=== PATIENT | female | born 2000 | race Caucasian/White ===

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

== ENCOUNTER 2020-08-10 01:44 | Emergency (ER) | payer OTHER ==
[2020-08-10 02:15] VITALS: BP 116/53; PULSE 94; TEMP 98.3; BMI 41.5
--- OUTSIDE RECORDS SUMMARY | 2020-08-10 02:16 | XMS ---
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 12/13/2019 eCW2 (Planne d 12:00:00 AM [facility] - EST [place] [employer]) US transvaginal, 12/10/2019 eCW2 (Plann ed uterus 12:00:00 AM [facility] - EST [place] [employer]) Test 12/10/2019 eCW2 (Planned 12:00:00 AM [facility] - EST [place] [employer]) HEMOGLOBIN 12/10/2019 eCW2 (Planned 12:00:00 AM [facility] - EST [place] [employer]) BETA HCG QUANTI 12/10/2019 eCW2 (Planne d 12:00:00 AM [facility] - EST [place] [employer]) CHLAMYDIA, RENE 12/10/2019 eCW2 (Planned 12:00:00 AM [facility] - EST [place] [employer]) GONORRHEA, RENE 12/10/2019 eCW2 (Planned 12:00:00 AM [facility] - EST [place] [employer]) TRICHOMONAS, RENE 12/10/2019 eCW2 (Plann ed 12:00:00 AM [facility] - EST [place] [employer] [employer]) HIV Rapid Test INSTI 12/10/2019 eCW2 (P lanned 12:00:00 AM [facility] - EST [place] [employer]) GONORRHEA, RENE 10/02/2018 eCW2 (Planned 12:00:00 AM [facility] - EST [place] [employer]) GLUCOSE SERUM 10/02/2018 eCW2 (Planned 12:00:00 AM [facility] - EST [place] [employer]) BLOOD TYPING, ABO 10/02/2018 eCW2 (Plan lizbet ( only) 12:00:00 AM [facility] - EST [place] [employer] [employer]) BLOOD TYPING RH FACTOR 10/02/2018 eCW2 (Planned 12:00:00 AM [facility] - EST [place] [employer]) CHLAMYDIA, RENE 10/02/2018 eCW2 (Planned 12:00:00 AM [facility] - EST [place] [employer]) URINE CULTURE/COLONY 10/02/2018 eCW2 (P lanned COUNT 12:00:00 AM [facility] - EST [place] [employer] [employer]) Urinalysis Dip 10/02/2018 eCW2 (Planned 12:00:00 AM [facility] - EST [place] [employer]) RUBELLA ANTIBODY 10/02/2018 eCW2 (Plann ed 12:00:00 AM [facility] - EST [place] [employer]) CYSTIC FIBROSIS SCREEN 10/02/2018 eCW2 (Planned 12:00:00 AM [facility] - EST [place] [employer] [employer]) HIV Rapid Test INSTI 10/02/2018 eCW2 (P lanned 12:00:00 AM [facility] - EST [place] [employer]) TB TEST, CELL IMMUN 10/02/2018 eCW2 (Pl anned MEASURE 12:00:00 AM [facility] - EST [place] [employer]) HEMOGLOBIN 10/02/2018 eCW2 (Planned CHROMOTOGRAPHY 12:00:00 AM [facility] - EST [place] [employer]) SYPHILIS TEST 10/02/2018 eCW2 (Planned 12:00:00 AM [facility] - EST [place] [employer]) URINALYSIS, COMPLETE 10/02/2018 eCW2 (P lanned 12:00:00 AM [facility] - EST [place] [employer]) RBC ANTIBODY SCREEN 10/02/2018 eCW2 (Pl anned () 12:00:00 AM [facility] - EST [place] [employer] [employer]) VARICELLA ZOSTER 10/02/2018 eCW2 (Plann ed ANTIBODY 12:00:00 AM [facility] - EST [place] [employer] [employer]) CBC W/DIFFERENTIAL 10/02/2018 eCW2 (Gustavo nned 12:00:00 AM [facility] - EST [place] [employer]) HEP B SURFACE ANTIGEN 10/02/2018 eCW2 ( Planned HBsAg 12:00:00 AM [facility] - EST [place] [employer]) DRUG SCREEN, SINGLE 10/02/2018 eCW2 (Pl anned 12:00:00 AM [facility] - EST [place] [employer] [employer]) ASSAY OF LEAD 10/02/2018 eCW2 (Planned 12:00:00 AM [facility] - EST [place] [employer]) URINE TEST 03/16/2016 [facility] 12:00:00 AM ([facility]) 03/16/2016 04:57:32 PM EDT URINALYSIS DIP STICK 03/16/2016 [facility] 12:00:00 AM ([facility] EDT [facility]) 03/16/2016 04:57:32 PM EDT Urine Culture 09/23/2015 [facility] 12:00:00 AM ([facility] EST [facility]) 09/25/2015 12:34:[address]/GC RRNA,APTIMA,URINE 09/23/2015 [facility] 12:00:00 AM ([facility] EST [facility]) 09/25/2015 08:26:49 AM EST URINE 09/23/2015 [facility] 12:00:00 AM ([facility] EST [facility]) 09/23/2015 11:47:19 AM EST URINALYSIS DIP STICK 09/23/2015 [facility] 12:00:00 AM ([facility]) 09/23/2015 11:47:19 AM EST ALERE 4TH GEN RAPID HIV 09/23/2015 Cent [facility]icity 12:00:00 AM [facility] 09/23/2015 11:47:17 AM EST IMMUNIZATION ADMIN 09/09/2015 [facility] (PEDS) 1 VACCINE 12:00:00 AM ([facility] EST [facility]) 09/10/2015 12:22:22 PM EST Fluzone Quadrivalent 09/09/2015 [facility] Intramuscular 12:00:00 AM ([facility] Suspension 0.5 [facility] 09/10/2015 12:22:21 PM EST No Known procedures No Known procedures e CW2 ([facility] [place] [employer] [employer]) No Known procedures No Known procedures e CW2 ([facility] [place] [employer] [employer]) No Known procedures No Known procedures e CW2 ([facility] [place] [employer] [employer]) No Known procedures No Known procedures e CW2 ([facility] [place] [employer] [employer]) No Known procedures No Known procedures e CW2 ([facility] [place] [employer] [employer]) No Known procedures No Known procedures e CW2 ([facility] [place] [employer]) No Known procedures No Known procedures e CW2 ([facility] [place] [employer]) Results ID Date Data Source [id number] 05/11/2019 11:29:26 AM EDT [facility] [id number] Corporation Name Value Range Interpretation Description Data Source(s ) Supporting Code Document(s ) Antibody NEG <td> [place] Screen 05/08/2019 [facility] 22:30</td><td> Care Antibody Corporation Screen </td><td> NEG
</td> Specimen 05/11/20 <td> [facility] expiration 19 23:59 05/08/2019 [facility] date of Blood 22:30</td><td> Care Specimen Corporation Expiration Date </td><td> 05/11/2019 23:59
</td> ABO-Rh Type O POS <td> [place] 05/08/2019 [facility] 22:30</td><td> Care ABO-Rh Type Corporation </td><td> O POS
</td> ID Date Data Source [id number] 05/11/2019 11:29:26 AM EDT [facility] [id number] Corporation Name Value Range Interpretation Description Data Sup porting Code Source(s) Document(s ) Erythrocytes 4.04 m/mm3 3.60-5 <td> 05/10/2019 [facility] r [#/volume] in .10 05:20</td><td> [facility] Blood m/mm3 RBC </td><td> [facility] Care [facility] 4.04
(3.60-5.10) m/mm3 </td> Leukocytes 12.1 k/mm3 4.5-11 <td> 05/10/2019 [place] [#/volume] in .5 05:20</td><td> [facility] Blood by k/mm3 [facility]BC [facility] Automated count </td><td><sal Corporat ion raph styleCode="Bold "> 12.1 H </paragraph>
(4.5-11.5) k/mm3 </td> Hemoglobin 10.6 g/dL 11.5-1 <td> 05/10/2019 [place] [Mass/volume] 4.5 05:20</td><td> [facility] in Blood g/dL HGB Health Care </td><td><sal Corporation raph styleCode="Bold "> 10.6 L </paragraph>
(11.5-14.5) g/dL </td> Erythrocyte 32.3 % 32.0-3 <td> 05/10/2019 [place] mean 6.0 % 05:20</td><td> County corpuscular MCHC </td><td> Health Care hemoglobin Corporation concentration 32.3 [Mass/volume] in Blood from
Fetus by (32.0-36.0) % Automated count </td> Platelet mean 10.1 fL 9.8-12 <td> 05/10/2019 [facility] r volume [Entitic .8 fL 05:20</td><td> County volume] in MPV </td><td> Health Care Blood by [employer] Automated count 10.1
(9.8-12.8) fL </td> Erythrocyte 81.2 fL 80.0-9 <td> 05/10/2019 [place] mean 6.0 fL 05:20</td><td> County corpuscular MCV </td><td> Health Care volume [[employer] volume] by 81.2 Automated count
(80.0-96.0) fL </td> Erythrocyte 13.1 % 11.5-1 <td> 05/10/2019 [place] distribution 4.5 % 05:20</td><td> County width [Entitic RDW </td><td> Health Car e volume] by [employer] Automated count 13.1
(11.5-14.5) % </td> Erythrocyte 26.2 pg 27.0-3 <td> 05/10/2019 [place] mean 1.5 pg 05:20</td><td> County corpuscular MCH Health Care hemoglobin </td><td><sal Corporation [Entitic mass] raph by Automated styleCode="Bold count "> 26.2 L </paragraph>
(27.0-31.5) pg </td> Hematocrit 32.8 % 36.0-4 <td> 05/10/2019 [place] [Volume 7.0 % 05:20</td><td> County Fraction] of HCT Health Care Blood by </td><td><[employer] Automated count raph styleCode="Bold "> 32.8 L </paragraph>
(36.0-47.0) % </td> Basophils+Eosin 1.4 % 0.0-5. <td> 05/10/2019 [facility] ophils+Monocyte 0 % 05:20</td><td> County s [#/volume] in Eosinophils Health Care Blood by </td><td> [employer] Automated count 1.4
(0.0-5.0) % </td> Platelets 218 k/mm3 160-41 <td> 05/10/2019 [place] [#/volume] in 0 05:20</td><td> [facility] Blood by k/mm3 Platelet Count Health Care Automated count </td><td> [employer] 218
(160-410) k/mm3 </td> Monocytes/Leuko 6.9 % 0.0-11 <td> 05/10/2019 [facility] cytes [Pure .0 % 05:20</td><td> County number Monocytes. Health Care fraction] in </td><td> [employer] Blood by Automated count 6.9
(0.0-11.0) % </td> Immature 0.7 % 0.0-0. <td> 05/10/2019 [place] granulocytes/10 5 % 05:20</td><td> County 0 leukocytes in IG% Health Care Blood by </td><td><[employer] Automated count raph styleCode="Bold "> 0.7 H </paragraph>
(0.0-0.5) %
The IG fraction represents metamyelocytes, myelocytes and/or
promyelocytes and is only reported as part of the automated
differential when found at a percentage of less than 6.
If higher than 6%, a manual differential will be performed.

(0.0-0.5) % </td> Basophils 0.2 % 0.0-2. <td> 05/10/2019 [place] [#/volume] in 0 % 05:20</td><td> [facility] Blood by Basophils Health Care Automated count </td><td> [employer] 0.2
(0.0-2.0) % </td> Lymphocytes 19.9 % 18.0-5 <td> 05/10/2019 [place] [#/volume] in 3.0 % 05:20</td><td> [facility] Blood by Lymphocytes Health Care Automated count </td><td> [employer] 19.9
(18.0-53.0) % </td> Poikilocytosis Slight <td> 05/08/2019 [facility] er [Presence] in 22:30</td><td> [facility] Blood by Light Poikilocytosis Health Car e microscopy </td><td> [employer] Slight
</td> Glucose 59 mg/dL 70-105 <td> 05/10/2019 [place] [Mass/volume] mg/dL 05:20</td><td> County in Blood Glucose-Serum Health Care </td><td><sal Corporation raph styleCode="Bold "> 59 L </paragraph>
(70-105) mg/dL </td> Potassium 3.8 mEq/L 3.5-5. <td> 05/10/2019 [facility] [Moles/volume] 1 05:20</td><td> County in Serum or mEq/L Potassium-Serum Health Care Plasma </td><td> [employer] [employer] 3.8
(3.5-5.1) mEq/L </td> Anisocytosis Slight <td> 05/08/2019 [place] [Presence] in 22:30</td><td> [facility] Blood by Light Anisocytosis Health Care microscopy </td><td> [employer] Slight
</td> Neutrophils [#] 70.9 % 36.0-7 <td> 05/10/2019 [facility] in Body fluid 3.0 % 05:20</td><td> [facility] by Manual count Neutrophils Health Care </td><td> [facility] [employer] 70.9
(36.0-73.0) % </td> Sodium 138 mEq/L 135-14 <td> 05/10/2019 [facility] [Moles/volume] 5 05:20</td><td> County in Serum or mEq/L Sodium-Serum Health Care Plasma </td><td> Corporation 138
(135-145) mEq/L </td> Carbon dioxide, 21 mEq/L 22-30 <td> 05/10/2019 [facility] total mEq/L 05:20</td><td> County [Moles/volume] CO2 Health Care in Serum or </td><td><[employer] Plasma raph styleCode="Bold "> 21 L </paragraph>
(22-30) mEq/L </td> Urea nitrogen 5 mg/dL 6-22 <td> 05/10/2019 [facility] r [Mass/volume] mg/dL 05:20</td><td> County in Blood BUN Health Care </td><td><[employer] raph styleCode="Bold "> 5 L </paragraph>
(6-22) mg/dL </td> Creatinine 0.50 mg/dL 0.57-1 <td> 05/10/2019 [facility] [Moles/volume] .11 05:20</td><td> County in Serum or mg/dL Creatinine. Health Care Plasma </td><td><[employer] raph styleCode="Bold "> 0.50 L </paragraph>
(0.57-1.11) mg/dL </td> Chloride 108 mEq/L 98-107 <td> 05/10/2019 [facility] [Moles/volume] mEq/L 05:20</td><td> County in Serum or Chloride Health Care Plasma </td><td><[employer] raph styleCode="Bold "> 108 H </paragraph>
(98-107) mEq/L </td> Alanine 14 U/L 6-55 <td> 05/10/2019 [facility] aminotransferas U/L 05:20</td><td> County e [Enzymatic ALT (SGPT) Health Care activity/volume </td><td> Corporation ] in Serum or Plasma 14
(6-55) U/L </td> Aspartate 20 U/L 4-35 <td> 05/10/2019 [facility] aminotransferas U/L 05:20</td><td> County e [Enzymatic AST (SGOT) Health Care activity/volume </td><td> [employer] ] in Serum or Plasma 20
(4-35) U/L </td> Anion gap in 9 mEq/L 7-13 <td> 05/10/2019 [facility] Serum or Plasma mEq/L 05:20</td><td> [facility] Anion Gap Health Care </td><td> [employer] 9
(7-13) mEq/L </td> Globulin 2.8 gm/dL 2.9-4. <td> 05/10/2019 [facility] [Mass/volume] 0 05:20</td><td> County in Serum gm/dL Globulin Health Care </td><td><sal [employer] raph styleCode="Bold "> 2.8 L </paragraph>
(2.9-4.0) gm/dL </td> Proteins - 5.5 g/dL 5.6-7. <td> 05/10/2019 [facility] Total 5 g/dL 05:20</td><td> [facility] Proteins - Health Care [employer] </td><td><sal raph styleCode="Bold "> 5.5 L </paragraph>
(5.6-7.5) g/dL </td> Bilirubin.total 0.5 mg/dL 0.2-1. <td> 05/10/2019 [facility] [Mass/volume] 3 05:20</td><td> [facility] in Blood mg/dL Bilirubin - Health Care Total [facility] [employer] </td><td> 0.5
(0.2-1.3) mg/dL </td> Calcium 8.9 mg/dL 8.6-10 <td> 05/10/2019 [facility] [Mass/volume] .2 05:20</td><td> [facility] in Blood mg/dL Calcium Health Care </td><td> [employer] [employer] 8.9
(8.6-10.2) mg/dL </td> Hemolysis index No <td> 05/10/2019 [facility] of Serum or Hemolysis 05:20</td><td> County Plasma Hemolysis Index Health Care </td><td> Corporation No Hemolysis
</td> Albumin 2.7 g/dL 3.4-4. <td> 05/10/2019 [facility] [Mass/volume] 8 g/dL 05:20</td><td> County in Serum or Albumin Health Care Plasma </td><td><sal Corporation raph styleCode="Bold "> 2.7 L </paragraph>
(3.4-4.8) g/dL </td> Lipemic index No Lipemia <td> 05/10/2019 [facility] er of Serum or 05:20</td><td> County Plasma Lipemia Index Health Care </td><td> [employer] No Lipemia
</td> Protein 1+ (30 <td> 05/08/2019 [facility] [Presence] in MG/DL) 17:00</td><td> [facility] Urine by Protein Health Care Automated test [employer] strip </td><td> 1+ (30 MG/DL)
(NEGATIVE) </td> Appearance of Cloudy <td> 05/08/2019 [facility] r Urine 17:00</td><td> County Appearance Health Care </td><td> [employer] [employer] Cloudy
(CLEAR) </td> Specific 1.031 {} 1.000- <td> 05/08/2019 [facility] gravity of 1.035 17:00</td><td> [facility] Urine by Test Specific Health Care strip [place] [facility] [employer] </td><td> 1.031
(1.000-1.035) </td> Glucose Negative <td> 05/08/2019 [place] [Presence] in 17:00</td><td> [facility] Urine by Test Glucose_ Health Care strip </td><td> Corporation Negative
(NEGATIVE) </td> Icteric index Not <td> 05/10/2019 [facility] r of Serum or Icteric 05:20</td><td> [facility] Plasma Icteric Index Health Care </td><td> Corporation Not Icteric
</td> Nitrite Negative <td> 05/08/2019 [place] [Presence] in 17:00</td><td> [facility] Urine by Test Nitrites Health Care strip </td><td> Corporation Negative
(NEGATIVE) </td> Bacteria RARE <td> 05/08/2019 [facility] [#/area] in 17:00</td><td> [facility] Urine sediment Bacteria Health Care by Microscopy </td><td> [employer] high power field RARE
(NONE SEEN) /HPF </td> Urobilinogen 2.0 mg/dL 0.0-2. <td> 05/08/2019 [place] [Presence] in 0 17:00</td><td> [facility] Urine by mg/dL Urobilinogen [facility] Care Automated test </td><td> [employer] strip 2.0
(0.0-2.0) mg/dL </td> Leukocytes 10 /HPF 0-5 <td> 05/08/2019 [facility] [Presence] in /HPF 17:00</td><td> [facility] Urine by WBC </td><td> Health Care Automated [employer] 10
(0-5) /HPF </td> Leukocyte 1+ <td> 05/08/2019 [facility] esterase 17:00</td><td> [facility] [Presence] in Leukocytes Health Care Urine by Test Esterase [employer] strip </td><td><sal raph styleCode="Bold "> 1+ * AB </paragraph>
(NEGATIVE) </td> Erythrocytes 1 /HPF 0-2 <td> 05/08/2019 [facility] [#/area] in /HPF 17:00</td><td> [facility] Urine sediment RBC </td><td> Health Car e by Automated [employer] count 1
(0-2) /HPF </td> Epithelial MANY <td> 05/08/2019 [facility] cells [#/area] FEW 17:00</td><td> [facility] in Urine Epithelial Health Care sediment by [employer] Automated count </td><td> MANY
/LPF
FEW

/LPF </td> Mucous RARE <td> 05/08/2019 [facility] < FEW 17:00</td><td> County Mucous Health Care </td><td> Corporation RARE
/LPF
< FEW

/LPF </td> Epithelial MODERATE <td> 05/08/2019 [facility] cells [#/area] Ca Oxalate 17:00</td><td> [facility] in Urine Crystals.. Calcium Oxalate Health Care sediment by May be [employer] Automated count present in </td><td> normal, MODERATE acid or
alkaline Ca Oxalate urine Crystals..May be present in normal, acid or alkaline urine

(SEE BELOW) /HPF </td> ID Date Data Source [id number] 05/08/2019 06:34:04 PM EDT [facility] [id number] [employer] Name Value Range Interpretation Description Data Source(s ) Supporting Code Document(s ) No Results Normal (applies < [facility] information to non-numeric align="left">< [facility] ealt exists for results) content Care this episode. styleCode="Consult A Doctor d"> No Results information exists for this episode.
< /content></th> ID Date Data Source [id number] 05/07/2019 08:18:04 PM EDT [facility] [id number] [facility] [employer] Name Value Range Interpretation Description Data Source(s ) Supporting Code Document(s ) No Results Normal (applies < [facility] information to non-numeric align="left">< [facility]) content Care this episode. styleCode="Consult A Doctor d"> No Results information exists for this episode.
< /content></th> ID Date Data Source Urinalysis 10/03/2018 07:15:00 PM [facility] Name Value Range Interpretation Description Data Sup porting Code Source(s) Document(s ) Glucose NEGATIVE <content [facility] [Mass/volume] styleCode="Robby Maris in Urine by d">Urine Medical Test strip Glucose Center </content>NEGA TIVE MG/DL<content styleCode="Cathleen lics"> (NEGATIVE MG/DL)</conten t> Ketones NEGATIVE <content [facility] [Mass/volume] styleCode="Robby Maris in Urine by d">Urine Medical Test strip Ketone Center </content>TRAC E MG/DL<content styleCode="Cathleen lics"> (NEGATIVE MG/DL)</conten t> Color of Urine YELLOW <content Saint styleCode="Robby Maris d">Color, Medical Urine Center </content>YELL OW <content styleCode="Cathleen lics"> (YELLOW )</content> UNK CLEAR <content Saint styleCode="Robby Cuellars d">Urine Medical Clarity Center </content>HAZY <content styleCode="Cathleen lics"> (CLEAR )</content> UNK NEGATIVE <content Saint styleCode="Robby Maris d">Urine Medical Bilirubin Center </content>NEGA TIVE <content styleCode="Cathleen lics"> (NEGATIVE )</content> Protein NEGATIVE <content Saint [Mass/volume] styleCode="Robby Cuellars in Urine by d">Urine Medical Test strip Protein Center </content>NEGA TIVE MG/DL<content styleCode="Cathleen lics"> (NEGATIVE MG/DL)</conten t> Specific 1.015-1.02 <content Saint gravity of 5 styleCode="Robby Cuellars Urine by Test d">Urine Medical strip Specific Center [place] </content>1.02 5 NM<content styleCode="Cathleen lics"> (1.015-1.025 NM)</content> pH of Urine by 4.5-8.0 <content Saint Test strip styleCode="Robby Maris d">Urine pH Medical </content>6.0 Center NM<content styleCode="Cathleen lics"> (4.5-8.0 NM)</content> Hemoglobin NEGATIVE <content Saint [Presence] in styleCode="Robby Cuellars Urine by Test d">Urine Blood Medical strip </content>NEGA Center TIVE <content styleCode="Cathleen lics"> (NEGATIVE )</content> Leukocyte NEGATIVE <content Saint esterase styleCode="oRbby Cuellars [Presence] in d">Urine Medical Urine by Test Leukocyte Center strip </content>TRAC E <content styleCode="Cathleen lics"> (NEGATIVE )</content> Urobilinogen 0.2-1.0 <content Saint [Units/volume] styleCode="Robby Cuellars in Urine by d">Urine Medical Test strip Urobilinogen Center </content>1.0 MG/DL<content styleCode="Cathleen lics"> (0.2-1.0 MG/DL)</conten t> UNK 0-3 <content Saint styleCode="Robby Maris d">Urine White Medical Blood Cell Center </content>3-5 HPF<content styleCode="Cathleen lics"> (0-3 HPF)</content> Nitrite NEGATIVE <content Saint [Presence] in styleCode="Robby Cuellars Urine by Test d">Urine Medical strip Nitrite Center </content>NEGA TIVE <content styleCode="Cathleen lics"> (NEGATIVE )</content> UNK <content Saint styleCode="Robby Maris d">Epithelial Medical Cell Center </content>0-2 LPF (Reference Range: not available)<br/ > ID Date Data Source HematologyRou 10/03/2018 07:05:00 PM EST [facility] Name Value Range Interpretation Description Data Sup porting Code Source(s) Document(s ) Leukocytes 5.0-13.0 <content Saint [#/volume] in styleCode="Bold Maris Blood by ">White Blood Medical Automated count Cell Count Center </content>8.95 KCUMM<content styleCode="Ital ics"> (5.0-13.0 KCUMM)</content > Erythrocytes 3.9-5.3 <content Saint [#/volume] in styleCode="Bold Maris Blood by ">Red Blood Medical Automated count Cell Count Center </content>4.56 MCUMM<content styleCode="Ital ics"> (3.9-5.3 MCUMM)</content > Hematocrit 36.0-46. Below low normal <content Saint [Volume 0 styleCode="Bold Maris Fraction] of ">Hematocrit Medical Blood by </content>35.5 Center Automated count % L<content styleCode="Ital ics"> (36.0-46.0 %)</content> Erythrocyte mean 75.0-95. <content Saint corpuscular 0 styleCode="Bold Maris volume [Entitic ">Mean Medical volume] by Corpuscular Center Automated count Volume </content>77.9 FL<content styleCode="Ital ics"> (75.0-95.0 FL)</content> Erythrocyte mean 24.0-32. <content Saint corpuscular 0 styleCode="Bold Maris hemoglobin ">Mean Medical [Entitic mass] Corposcular Center by Automated Hemoglobin count </content>26.5 PG<content styleCode="Ital ics"> (24.0-32.0 PG)</content> Hemoglobin 11.5-16. <content Saint [Mass/volume] in 0 styleCode="Bold Maris Blood ">Hemoglobin Medical </content>12.1 Center G/DL<content styleCode="Ital ics"> (11.5-16.0 G/DL)</content> Erythrocyte mean 31.0-37. <content Saint corpuscular 0 styleCode="Bold Maris hemoglobin ">Mean Corpus. Medical concentration Hgb Center [Mass/volume] by Concentration Automated count (MCHC) </content>34.1 G/DL<content styleCode="Ital ics"> (31.0-37.0 G/DL)</content> Erythrocyte 12.7-14. Below low normal <content Saint distribution 5 styleCode="Bold Maris width [Ratio] by ">Red Cell Medical Automated count Distribution Center Width </content>12.6 % L<content styleCode="Ital ics"> (12.7-14.5 %)</content> Platelets 140-400 <content Saint [#/volume] in styleCode="Bold Maris Blood by ">Platelet Medical Automated count Count Center </content>284 KCUMM<content styleCode="Ital ics"> (140-400 KCUMM)</content > Neutrophils 40.0-74. <content Saint [#/volume] in 0 styleCode="Bold Maris Blood by ">Neutrophil Medical Automated count </content>64.9 Center %<content styleCode="Ital ics"> (40.0-74.0 %)</content> Platelet mean 8.0-11.0 <content Saint volume [Entitic styleCode="Bold Maris volume] in Blood ">Mean Platelet Medical by Automated Volume Center count </content>9.6 FL<content styleCode="Ital ics"> (8.0-11.0 FL)</content> Monocytes 2.0-7.0 <content Saint [#/volume] in styleCode="Bold Maris Blood by ">Monocyte Medical Automated count </content>6.6 Center %<content styleCode="Ital ics"> (2.0-7.0 %)</content> UNK 1.5-8.0 <content Saint styleCode="Bold Maris ">Neutrophil Medical Count Center </content>5.80 KCUMM<content styleCode="Ital ics"> (1.5-8.0 KCUMM)</content > Lymphocytes 14.0-45. <content Saint [#/volume] in 0 styleCode="Bold Maris Blood by ">Lymphocyte Medical Automated count </content>26.5 Center %<content styleCode="Ital ics"> (14.0-45.0 %)</content> UNK 2.5-3.5 Below low normal <content Saint styleCode="Bold Maris ">Lymphocyte Medical Count Center </content>2.37 KCUMM L<content styleCode="Ital ics"> (2.5-3.5 KCUMM)</content > Eosinophils 0-5.0 <content Saint [#/volume] in styleCode="Bold Maris Blood by ">Eosinophil Medical Automated count </content>1.3 Center %<content styleCode="Ital ics"> (0-5.0 %)</content> UNK 0.4-0.8 <content Saint styleCode="Bold Maris ">Monocyte Medical Count Center </content>0.59 KCUMM<content styleCode="Ital ics"> (0.4-0.8 KCUMM)</content > UNK 0.2-0.4 Below low normal <content Saint styleCode="Bold Maris ">Eosinophil Medical Count Center </content>0.12 KCUMM L<content styleCode="Ital ics"> (0.2-0.4 KCUMM)</content > Basophils 0.0-2.0 <content Saint [#/volume] in styleCode="Bold Maris Blood by ">Basophil Medical Automated count </content>0.3 Center %<content styleCode="Ital ics"> (0.0-2.0 %)</content> UNK 0.0-0.2 <content Saint styleCode="Bold Maris ">Basophil Medical Count Center </content>0.03 KCUMM<content styleCode="Ital ics"> (0.0-0.2 KCUMM)</content > UNK 0-0.1 <content Saint styleCode="Bold Maris ">Immature Medical Granulocyte Center Count </content>0.04 KCUMM<content styleCode="Ital ics"> (0-0.1 KCUMM)</content > UNK 0.0 <content Saint styleCode="Bold Maris ">Nucleated Red Medical Blood Cell Center Count </content>0.00 KCUMM<content styleCode="Ital ics"> (0.0 KCUMM)</content > UNK 0 <content Saint styleCode="Bold Maris ">Nucleated Red Medical Blood Cell Center </content>0.0 /100<content styleCode="Ital ics"> (0 /100)</content> UNK < 1 <content Saint styleCode="Bold Maris ">Immature Medical Granulocyte Center Ratio </content>0.4 %<content styleCode="Ital ics"> (< 1 %)</content> ID Date [facility]/03/[facility] 07:05:00 PM EST [facility] Name Value Range Interpretation Code Description Data Criselda rce(s) Supporting Document(s ) UNK NEGATIVE <content [facility] styleCode="Bold" Medical Cente r >Antibody Screen </content>NEGATI VE <content styleCode="Itali cs"> (NEGATIVE )</content> UNK <content [facility] styleCode="Bold" Medical Cente r >RH Type </content>TNP (Reference Range: not available)
UNK <content [facility] styleCode="Bold" Medical Cente r >RH Type </content>POSITI VE (Reference Range: not available)
UNK <content [facility] styleCode="Bold" Medical Cente r >Blood Type </content>GROUP O (Reference Range: not available)
ID Date Data Source Blood Typing RH D 10/02/2018 12:00:00 AM EST eCW2 ([facility] Name Value Range Interpretation Code Description Data Criselda rce(s) Supporting Document(s ) Rh [Type] Positive Rh Factor eCW2 ([facility]) ID Date Data Source [id number] 03/16/2016 04:21:51 PM EDT Centric ity ([facility] [id number] [facility]) Name Value Range Interpretation Description Data Sup porting Code Source(s) Document(s ) Choriogonadotropin Negative HCG PREG UR Centricit y ( test) ([facility] [Presence] in Urine [facility]) specific gravity, 1.030 SPEC GR URIN Centricit y urine ([facility]) glucose, urine, Negative GLUCOSE, URN Centricity semiquantitative ([facility]) pH, urine, 5 PH URINE Centricity semiquantitative ([facility]) bilirubin, urine Negative BILIRUBIN UR Centricity ([facility]) Albumin [Presence] Negative PROTEIN, URN Centrici ty in Urine ([facility]) urobilinogen, Negative UROBILIURDIP Centricity urine, by dipstick ([facility]) Nitrite Urine Negative NITRITE UA Centricity ([facility]) KETONES, URINE Negative KETONES UR Centricity ([facility]) leukocyte esterase, + WBC DIPSTK U Centric ity urine, by dipstick ([facility]) BLOOD, URINE Negative BLOOD UR Centricity (hematuria) ([facility]) appearance, urine Clear APPEARANCE U Centricit y ([facility]) urine color Yellow UA COLOR Centricity ([facility]) Documentation of Done MEDS REVIEWD [facility]ity [facility]) Documentation of Done MEDS REVIEW Centricity current medications ([facility] n (procedure) [facility]) ID Date Data Source [id number] 09/23/2015 12:08:00 PM EST Centric ity ([facility] [id number] [facility]) Name Value Range Interpretation Description Data Sup porting Code Source(s) Document(s ) Bacteria 20,000-5 NO GROWTH Normal (applies URINE CULT Centricity identified in 0,000 to non-numeric ([facility] Urine by CFU... results) [facility] Culture [facility]) ID Date Data Source [id number] 09/23/2015 12:08:00 PM EST Centric ity ([facility] [id number] [facility]) Name Value Range Interpretation Description Data Sup porting Code Source(s) Document(s ) Neisseria NEGATIVE NEGATIVE Normal (applies NGONR RNA*R Centricity gonorrhoeae to non-numeric ([facility] [Presence] results) Family in Urine by [facility]) Probe and target amplification method Chlamydia NEGATIVE NEGATIVE Normal (applies CTRAC RNA*R Centricity trachomatis to non-numeric ([facility] rRNA [Presence] results) Family in Urine by [facility]) Probe and target amplification method ID Date Data Source [id number] 09/23/2015 10:24:34 AM EST Centric ity ([facility] [id number] [facility]) Name Value Range Interpretation Description Data Sup porting Code Source(s) Document(s ) HIV rapid Antigen HIVRAPIDRSLT Centricity test results Non-Reactiv ([facility] e, Antibody Family Non-Reactiv Healthcare) e Smoking yes SMOK ADVICE Centricity cessation ([facility] education Family (procedure) [facility]) hemoglobin, 12.8 g/dL HGB POC Centricity blood, ([facility] , point of Healthcare) care Procedure Social History Code Duration Value Status Description Data Source(s ) Tobacco use 03/16/2016 PAS CIG SMOK completed PAS CIG SMOK no Centri city and exposure 04:21:51 PM no ([facility] 03/16/2016 [facility]) 04:21:51 PM EDT Smoking 03/16/2016 Never smoker completed Never smoker [facility] 04[facility]21:[facility]16[facility]2016 [facility]) 04:21:51 PM EDT Health-related 03/16/2016 HIV RSK EVAL completed HIV RSK EVAL no Nanad tricity behavior 04:21:51 PM no ([facility] 03/16/2016 [facility]) 04:21:51 PM EDT Details of 03/16/2016 DRUG USE no completed DRUG USE no Centricity drug misuse 04:21:51 PM ([facility] behavior [facility] 03/16/2016 [facility]) 04:21:51 PM EDT Alcohol intake 12/23/2015 ALCOHOL COMM completed ALCOHOL COMM no Nanda tricity 12:25:03 PM no ([facility] 12/23/2015 [facility]) 12:25:03 PM EST Tobacco use 09/23/2015 SMOK ADVICE completed SMOK ADVICE yes Centric ity and exposure 10:24:34 AM yes ([facility] 09/23/2015 [facility]) 10:24:34 AM EST Smoking Unknown if completed Unknown if ever eCW2 ([facility]) Smoking Unknown if completed Unknown if ever eCW2 ([facility] nned ever smoked [facility] [place] [facility]) Smoking Unknown if completed Unknown if ever eCW2 ([facility]avo nned ever smoked [facility] [place] [facility]) Smoking Unknown if completed Unknown if ever eCW2 (Gustavo nned ever smoked [facility] [place] [facility]) Smoking Unknown if completed Unknown if ever eCW2 (Gustavo nned ever smoked [facility] [place] [facility]) Smoking Never Smoker completed Never Smoker eCW2 ([facility]) Smoking Unknown if completed Unknown if ever eCW2 (Gustavo nned ever smoked [facility] [place] [facility]) Smoking Unknown if completed Unknown if ever eCW2 (Gustavo nned ever smoked [facility] [place] [facility]) Smoking Unknown if completed Unknown if ever eCW2 (Gustavo nned ever smoked [facility] [place] [facility]) Smoking Unknown if completed Unknown if ever eCW2 (Gustavo nned ever smoked smoked [facility] [place] [facility]) Smoking Never smoker completed Never smoker [facility] on Smoking Unknown if completed Unknown if ever [facility] ever smoked smoked Medical Cente r Smoking Unknown if completed Unknown if ever eCW2 (Gustavo nned ever smoked [facility] [place] [facility]) Smoking Unknown if completed Unknown if ever eCW2 (Gustavo nned ever smoked [facility] [place] [facility]) Smoking Never Smoker completed Never Smoker eCW2 ([facility]) Vital Signs ID Date Data Source UNK Name Value Range Interpretation Code Description Data Source(s) Body mass index 48.28 kg/m2 48.28 kg/m2 eCW2 (P lanned (BMI) [Ratio] [facility] [place] [facility]) Body weight 264 [lb_av] 264 [lb_av] eCW2 ([facility] [place] [facility]) Body height 62 [in_us] 62 [in_us] eCW2 ([facility]) Body mass index 46.64 kg/m2 46.64 kg/m2 eCW2 (P lanned (BMI) [Ratio] [facility] [place] [facility]) Body weight 255 [lb_av] 255 [lb_av] eCW2 ([facility] [place] [facility]) Body height 62 [in_us] 62 [in_us] eCW2 ([facility]) Diastolic blood 54 mm[Hg] 54 mm[Hg] eCW2 (Gustavo nned pressure [facility] [place] [facility]) Systolic blood 102 mm[Hg] 102 mm[Hg] eCW2 (Plan lizbet pressure [facility] [place] [facility]) Body mass index 49.20 kg/m2 49.20 kg/m2 eCW2 (P lanned (BMI) [Ratio] [facility] [place] [facility]) Body weight 269 [lb_av] 269 [lb_av] eCW2 ([facility] [place] [facility]) Body height 62 [in_us] 62 [in_us] eCW2 ([facility]) Diastolic blood 78 mm[Hg] 78 mm[Hg] eCW2 (Gustavo nned pressure [facility] [place] [facility]) Systolic blood 100 mm[Hg] 100 mm[Hg] eCW2 (Plan lizbet pressure [facility] [place] [facility]) Body mass index 47.73 kg/m2 47.73 kg/m2 eCW2 (P lanned (BMI) [Ratio] [facility] [place] [facility]) Body weight 261 [lb_av] 261 [lb_av] eCW2 ([facility] [place] [facility]) Body height 62 [in_us] 62 [in_us] eCW2 ([facility]) Diastolic blood 57 {} Normal (applies to 57 {} [place] pressure non-numeric results) [facility] Systolic blood 123 {} Normal (applies to 123 {} [place] pressure non-numeric results) [facility] First Respiration 18.0000 {} Normal (applies to 18.0000 {} Travis rate Set non-numeric results) [facility] Heart rate 69.0000 {} Normal (applies to 69.0000 {} [place] eva non-numeric results) [facility] Body temperature 97.7000 {} Normal (applies to 97.7000 {} Travis non-numeric results) [facility] Diastolic blood 58 {} Normal (applies to 58 {} [place] pressure non-numeric results) [facility] Systolic blood 108 {} Normal (applies to 108 {} [place] pressure non-numeric results) [facility] First Respiration 18.0000 {} Normal (applies to 18.0000 {} Travis rate Set non-numeric results) [facility] Heart rate 88.0000 {} Normal (applies to 88.0000 {} [place] eva non-numeric results) [facility] Body temperature 98.1000 {} Normal (applies to 98.1000 {} Travis non-numeric results) [facility] wt - obtain Normal (applies to {} [facility] moore non-numeric results) [facility] weight - kg 111.3630 {} Normal (applies to 111.3630 {} [place] non-numeric results) Coun [facility] Body temperature 36.609014 36.625482 [facility] Respiratory rate 18 /min 18 /min [facility] Deprecated Oxygen 98 % 98 % [facility] osephs saturation in Medical [facility] ter Capillary blood by Oximetry Heart rate 90 /min 90 /min [facility] Systolic blood 92 mm[Hg] 92 mm[Hg] [facility] Diastolic blood 132 mm[Hg] 132 mm[Hg] [facility] Body weight 110.169849 110.800197 kg [facility] Measured kg [facility] Body temperature 36.600087 36.651177 [facility] Respiratory rate 18 /min 18 /min [facility] Deprecated Oxygen 99 % 99 % [facility] saturation in Medical [facility] ter Capillary blood by Oximetry Heart rate 94 /min 94 /min [facility] Body height 154.211187 154.156200 cm [facility] Systolic blood 100 mm[Hg] 100 mm[Hg] [facility] Diastolic blood 136 mm[Hg] 136 mm[Hg] [facility] Body mass index 45.8 kg/m2 45.8 kg/m2 [facility] (BMI) [Ratio] Medical Nanda ter Diastolic blood 72 mm[Hg] 72 mm[Hg] eCW2 (Gustavo nned pressure [facility]) Systolic blood 100 mm[Hg] 100 mm[Hg] eCW2 (Plan lizbet pressure [facility]) Body weight 241 [lb_av] 241 [lb_av] eCW2 (Plann ed [facility] [place] [facility]) Body height 62 [in_us] 62 [in_us] eCW2 ([facility]) Body weight 101.82 kg 101.82 kg Centricity Measured ([facility]) Body height 154.94 cm 154.94 cm Centricity ([facility]) Systolic blood 92 mm[Hg] 92 mm[Hg] Centricity pressure ([facility]) Diastolic blood 56 mm[Hg] 56 mm[Hg] Centricit y pressure ([facility]) Body mass index 42.48 kg/m2 42.48 kg/m2 Centric ity (BMI) [Ratio] ([facility]) Heart rate 81 /min 81 /min Centricity ([facility]) Body temperature 98.4 [degF] 98.4 [degF] Centri city ([facility]) Respiratory rate 16 /min 16 /min Centrici ty ([facility]) No Vital Sign [facility] exists for this Care Bess oration episode. Patient Treatment Plan of Care Planned Activity Planned Date Details Description Data Source (s) 168 HR Ethinyl Estradiol 01/29/2020 eCW 2 (Planned 0.42966 MG/HR / 12:00:00 AM EDT [facility] [place] norelgestromin 0.80597 [employer]) MG/HR Transdermal Patch [Xulane] emtricitabine 200 MG / eCW2 (Planned Tenofovir disoproxil [facility] [place] fumarate 300 MG Oral [facility]) Tablet [Truvada]
[2020-08-10] MEDS ORDERED: ONDANSETRON 4 MG/2 ML VIAL IVPUSH ONE (02:35)
[2020-08-10] MEDS ORDERED: ACETAMINOPHEN 1000 MG/100 ML VIAL (NON FORMULARY) IVPB ONE (02:35)
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
[2020-08-10] MEDS ORDERED: ACETAMINOPHEN 325 MG TABLET (FP) PO ONE (02:55)
[2020-08-10] MEDS ORDERED: ONDANSETRON *ODT* 4 MG TABLET SL ONE (02:58)
[2020-08-10] MEDS ORDERED: LIDOCAINE 5% TOPICAL PATCH TP ONE (03:03)
[2020-08-10] MEDS ORDERED: LIDOCAINE 5% TOPICAL PATCH ONE ×2 (03:03→03:25)
[2020-08-10] MEDS ORDERED: ACETAMINOPHEN 325 MG TABLET (FP) ONE (03:24)
[2020-08-10] MEDS ORDERED: ONDANSETRON *ODT* 4 MG TABLET ONE (03:25)
[2020-08-10] MEDS ORDERED: DIPHTH,PERTUSS(ACELL),TET 0.5 ML DISP.SYRIN IM ONE ×2 (04:17→05:21)
[2020-08-10] MEDS ORDERED: BACITRACIN 0.9 GM PACKET ONE (05:30)
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
[2020-08-10] MEDS ORDERED: LIDOCAINE PATCH REMOVAL MC SCH (22:00)
== END 2020-08-10 05:38 | disposition home or self-care (01) ==
LOC: JER 01:44
PROC: 3E0234Z Introduction of Serum, Toxoid and Vaccine into Muscle, Percutaneous Approach (ICD-10-PCS; principal; 2020-08-10)
DX: S09.90XA Unspecified injury of head, initial encounter (principal)
CPT/HCPCS: 70450-TC; 90715; 99284-25; Q0162

== ENCOUNTER 2021-07-17 15:36 | Emergency (ER) | payer OTHER ==
[2021-07-17 16:25] VITALS: BMI 41.5
[2021-07-17] MEDS ORDERED: ONDANSETRON *ODT* 4 MG TABLET SL ONE (17:20)
[2021-07-17] MEDS ORDERED: FAMOTIDINE 20 MG TABLET PO ONE (17:21)
[2021-07-17] MEDS ORDERED: MAG HYDROX/AL HYDROX/SIMETH 30 ML UNIT-DOSE CUP PO ONE (17:21)
[2021-07-17] MEDS ORDERED: FAMOTIDINE 20 MG TABLET ONE (18:08)
[2021-07-17] MEDS ORDERED: MAG HYDROX/AL HYDROX/SIMETH 30 ML UNIT-DOSE CUP ONE (18:09)
[2021-07-17] MEDS ORDERED: ONDANSETRON *ODT* 4 MG TABLET ONE (18:09)
[2021-07-17 18:23] LABS: EPI CELLS >36 /uL (0-25.1); HYALINE CASTS 1 /uL (0-3.1); URINE APPEARANCE CLOUDY; URINE BACTERIA 2961 /uL (0-1359); URINE BILIRUBIN NEGATIVE (NEGATIVE); URINE COLOR YELLOW; URINE GLUCOSE (UA) NEGATIVE (NEGATIVE); URINE KETONE NEGATIVE (NEGATIVE); URINE LEUK ESTERASE 3+ (NEGATIVE); URINE NITRITE NEGATIVE (NEGATIVE); URINE PROTEIN NEGATIVE (NEGATIVE); URINE WBC 185 /uL (0-25.8)
[2021-07-17 18:26] LABS: HCG,QUALITATIVE URINE Negative
[2021-07-17 20:09] LABS: URINE RBC 51.2 /uL (0-23.9)
[2021-07-17 20:21] LABS: BASO % 0.3 % (0-2.0); EOS % 1.6 % (0-4.5); HEMATOCRIT 40.2 % (32.4-45.2); HEMOGLOBIN 13.9 GM/dL (10.7-15.3); LYMPH % 34.1 % (8-40); MCH 27.1 pg (25.7-33.7); MCHC 34.7 g/dl (32.0-36.0); MEAN CELL VOLUME 78.2 fl (80-96); MEAN PLT VOLUME 7.2 fl (7.5-11.1); MONO % 4.6 % (3.8-10.2); NEUT % 59.4 % (42.8-82.8); PLATELET COUNT 291 10^3/uL (134-434); RBC 5.14 M/mm3 (3.60-5.2); RDW 13.5 % (11.6-15.6); WHITE BLOOD COUNT 8.5 K/mm3 (4.0-10.0)
[2021-07-17 20:41] LABS: ALBUMIN 3.7 g/dl (3.4-5.0); CALCIUM 8.8 mg/dL (8.5-10.1)
[2021-07-17 20:42] LABS: BLOOD UREA NITROGEN 12.9 mg/dL (7-18)
[2021-07-17 20:44] LABS: CREATININE 0.6 mg/dL (0.55-1.3)
[2021-07-17 20:46] LABS: BILIRUBIN,TOTAL 0.2 mg/dL (0.2-1); TOT PROT 7.4 g/dl (6.4-8.2)
[2021-07-17 21:13] VITALS: BP 110/73; PULSE 75; TEMP 98.3
== END 2021-07-17 21:13 | disposition home or self-care (01) ==
LOC: JER 15:36
DX: R10.13 Epigastric pain (principal); N39.0 Urinary tract infection, site not specified
CPT/HCPCS: 36415; 76705-TC; 80053; 81003; 83690; 84703; 85025; 87086; 99284-25; Q0162

== ENCOUNTER 2021-09-21 20:13 | Emergency (ER) | payer OTHER ==
[2021-09-21 20:19] VITALS: BP 117/77; PULSE 92; TEMP 98.1; BMI 43.4
[2021-09-21] MEDS ORDERED: IBUPROFEN 600 MG TABLET (FP) PO ONE ×2 (21:15→21:16)
== END 2021-09-21 22:52 | disposition home or self-care (01) ==
LOC: EROSA 20:13 → JER 20:13 → EROSA 22:52
DX: R07.89 Other chest pain (principal)
CPT/HCPCS: 71046-TC-FY; 93005; 93010; 99284-25

== ENCOUNTER 2022-01-09 21:28 | Emergency (ER) | payer OTHER ==
[2022-01-09 21:40] VITALS: BP 108/72; PULSE 84; TEMP 97.8; BMI 41.5
[2022-01-09] MEDS ORDERED: DIPHTH,PERTUSS(ACELL),TET 0.5 ML DISP.SYRIN IM ONE ×2 (22:32→22:36)
[2022-01-09] MEDS ORDERED: IBUPROFEN 600 MG TABLET (FP) PO ONE ×2 (22:50)
== END 2022-01-09 22:52 | disposition home or self-care (01) ==
LOC: JERFT 21:28
PROC: 3E0234Z Introduction of Serum, Toxoid and Vaccine into Muscle, Percutaneous Approach (ICD-10-PCS; principal; 2022-01-09)
DX: S61.307A Unspecified open wound of left little finger with damage to nail, initial encounter (principal); Y99.8 Other external cause status
CPT/HCPCS: 90471; 90715; 99283-25

== ENCOUNTER 2022-12-01 18:14 | Emergency (ER) | payer OTHER ==
[2022-12-01 18:52] VITALS: BMI 43.0
[2022-12-01] MEDS ORDERED: IBUPROFEN 600 MG TABLET (FP) PO ONE ×2 (19:41→19:43)
[2022-12-01] MEDS ORDERED: PSEUDOEPHEDRINE HCL 30 MG TABLET PO ONE ×2 (20:15→20:26)
[2022-12-01] MEDS ORDERED: PSEUDOEPHEDRINE HCL 60 MG TABLET ONE (20:18)
[2022-12-01 20:36] VITALS: BP 101/45; PULSE 78; RESP 20; TEMP 97.8
== END 2022-12-01 20:20 | disposition home or self-care (01) ==
LOC: JER 18:14
DX: R09.82 Postnasal drip (principal)
CPT/HCPCS: 0241U-QW; 71046-TC-FY; 93005; 93010; 99285-25

== ENCOUNTER 2022-12-24 19:39 | Emergency (ER) | payer OTHER ==
[2022-12-24 19:48] VITALS: BP 109/57; PULSE 96; RESP 18; TEMP 98.1; BMI 43.0
[2022-12-24] MEDS ORDERED: MAG HYDROX/AL HYDROX/SIMETH 30 ML UNIT-DOSE CUP PO ONE (20:15)
[2022-12-24] MEDS ORDERED: SODIUM CHLORIDE 0.9% 500 ML INFUS.BAG IV ONE (20:15)
[2022-12-24] MEDS ORDERED: FAMOTIDINE 20 MG/50 ML IVPB 20 MG/50 ML MG IVPB ONE ×2 (20:15→20:23)
[2022-12-24] MEDS ORDERED: ACETAMINOPHEN 1000 MG/100 ML BAG IVPB ONE (20:15)
[2022-12-24] MEDS ORDERED: MAG HYDROX/AL HYDROX/SIMETH 30 ML UNIT-DOSE CUP ONE (20:22)
[2022-12-24] MEDS ORDERED: ACETAMINOPHEN INJECTION 100 ML IVPB ONE (20:22)
[2022-12-24] MEDS ORDERED: ONDANSETRON *ODT* 4 MG TABLET SL ONE (20:54)
[2022-12-24] MEDS ORDERED: ONDANSETRON *ODT* 4 MG TABLET ONE (21:02)
== END 2022-12-24 21:41 | disposition home or self-care (01) ==
LOC: JERFT 19:39
DX: R10.10 Upper abdominal pain, unspecified (principal)
CPT/HCPCS: 99283-25; Q0162

== ENCOUNTER 2023-12-28 14:49 | Emergency (ER) | payer OTHER ==
[2023-12-28 14:54] VITALS: BMI 50.8
[2023-12-28] MEDS ORDERED: IBUPROFEN 600 MG TABLET (FP) PO ONE (16:09)
[2023-12-28] MEDS ORDERED: ALBUTEROL SO4 2.5/IPRATROPIUM 0.5 INH SOL 3 ML VIAL.NEB. NEB ONE (16:09)
[2023-12-28] MEDS ORDERED: ACETAMINOPHEN 500 MG TABLET (FP) ONE (16:09)
[2023-12-28] MEDS: ACETAMINOPHEN 500 MG TABLET (FP) PO ONE (16:17)
[2023-12-28] MEDS: ALBUTEROL SO4 2.5/IPRATROPIUM 0.5 INH SOL 3 ML VIAL.NEB. NEB ONE (16:17)
[2023-12-28] MEDS: IBUPROFEN 600 MG TABLET (FP) PO ONE (16:17)
[2023-12-28 17:14] VITALS: BP 100/55; PULSE 110; RESP 21; TEMP 99.5
[2023-12-28] MEDS ORDERED: ERYTHROMYCIN 0.5% OPHTHALMIC OINTMENT 3.5 GM TUBE ONE (17:46)
== END 2023-12-28 17:48 | disposition home or self-care (01) ==
LOC: JERFT 14:49
PROC: 3E0F7GC Introduction of Other Therapeutic Substance into Respiratory Tract, Via Natural or Artificial Opening (ICD-10-PCS; principal; 2023-12-28)
DX: M79.10 Myalgia, unspecified site (principal); R50.9 Fever, unspecified; R05.9 Cough, unspecified; R07.89 Other chest pain; R06.2 Wheezing; Z20.822 Contact with and (suspected) exposure to COVID-19
CPT/HCPCS: 0241U-QW; 99283-25

== ENCOUNTER 2024-07-03 14:18 | Emergency (ER) | payer OTHER ==
[2024-07-03 14:36] VITALS: RESP 18; BMI 43.0
[2024-07-03] MEDS ORDERED: ACETAMINOPHEN INJECTION 100 ML ONE (16:26)
[2024-07-03] MEDS ORDERED: ONDANSETRON 4 MG/2 ML VIAL ONE (16:26)
[2024-07-03] MEDS ORDERED: FAMOTIDINE 20 MG/50 ML IVPB 20 MG/50 ML MG IVPB ONE (16:27)
[2024-07-03 16:32] LABS: BASO % 0.2 % (0-2.0); EOS % 2.2 % (0-4.5); HEMATOCRIT 38.2 % (32.4-45.2); LYMPH % 32.4 % (8-40); MCH 26.8 pg (25.7-33.7); MEAN PLT VOLUME 7.3 fl (7.5-11.1); MONO % 6.2 % (3.8-10.2); PLATELET COUNT 300 10^3/uL (134-434); RBC 4.84 M/mm3 (3.60-5.2); RDW 13.7 % (11.6-15.6); WHITE BLOOD COUNT 8.9 K/mm3 (4.0-10.0)
[2024-07-03] MEDS: ACETAMINOPHEN 1000 MG/100 ML BAG IVPB ONE (16:36)
[2024-07-03] MEDS: LACTATED RINGERS SOLUTION 1000 ML INFUS.BAG IV ONE (16:36)
[2024-07-03] MEDS: ONDANSETRON 4 MG/2 ML VIAL IVPUSH ONE (16:36)
[2024-07-03 16:47] LABS: POTASSIUM 4.1 mmol/L (3.5-5.1)
[2024-07-03 16:49] LABS: ALBUMIN 3.4 g/dl (3.4-5.0); CALCIUM 8.7 mg/dL (8.5-10.1)
[2024-07-03 16:50] LABS: BLOOD UREA NITROGEN 7.6 mg/dL (7-18)
[2024-07-03 16:52] LABS: CREATININE 0.6 mg/dL (0.55-1.3)
[2024-07-03 16:54] LABS: TOT PROT 6.7 g/dl (6.4-8.2)
[2024-07-03 17:01] LABS: BILIRUBIN,TOTAL 0.6 mg/dL (0.2-1)
[2024-07-03] MEDS: FAMOTIDINE 20 MG/50 ML IVPB 20 MG/50 ML MG IVPB ONE (17:37)
[2024-07-03 18:36] VITALS: BP 102/70; PULSE 74; TEMP 98.1
== END 2024-07-03 18:35 | disposition home or self-care (01) ==
LOC: JER 14:18
PROC: 3E033GC Introduction of Other Therapeutic Substance into Peripheral Vein, Percutaneous Approach (ICD-10-PCS; principal; 2024-07-03)
PROC: 3E033NZ Introduction of Analgesics, Hypnotics, Sedatives into Peripheral Vein, Percutaneous Approach (ICD-10-PCS; 2024-07-03)
PROC: 3E033GC Introduction of Other Therapeutic Substance into Peripheral Vein, Percutaneous Approach (ICD-10-PCS; 2024-07-03)
DX: R11.2 Nausea with vomiting, unspecified (principal); R19.7 Diarrhea, unspecified; R10.30 Lower abdominal pain, unspecified
CPT/HCPCS: 36415; 80053; 83605; 83690; 83735; 84703; 85025; 93005; 93010; 99284-25; J0131